=== PATIENT | female | born 1955 | race Caucasian/White ===

== ENCOUNTER → 2016-07-26 | Outpatient (CLI) | payer OTHER ==
[~2016-07-26] MED LIST: ASPI81TA21 PO; DEXL60CA4 PO; DTRSR10 PO; FLVHFA110 INH; LISI2.5T5 PO; LRT5 PO; METO-551 PO; MIRA1TAB3 PO; PANT40TA PO; TIOTCAP INH
--- NOTE | 2016-07-26 17:35 | MYOCARDIAL PERFUSION SCAN ---
STRESS CARDIOLITE EXERCISE TREADMILL TEST: Patient exercised for 8 minutes 35 seconds on a Sav protocol achieving a peak heart rate of 146 bpm (91% maximum predicted, 10 MET workload). Appropriate blood pressure response to exercise (resting BP 140/94 mm of mm Hg, peak BP 194/90 mm Hg) No symptoms reported. Baseline ECG showed sinus rhythm with low-voltage QRS, left axis deviation, and isoelectric ST segments. During stress, no ST deviation or significant ectopy noted. At the conclusion of the study, patient was asymptomatic and hemodynamically stable. IMAGING TECHNIQUE: For the stress portion of the study, 32.3 mCi of technetium- 99 m Cardiolite IV was injected at 10:00 a.m. on 07/26/2016. Fifteen minutes following the injection, imaging of the heart was performed in multiple projections. For the rest portion of the study, 10.6 mCi of technetium-99 m Cardiolite was injected IV at 8:10 a.m. One hour following the injection, imaging of the heart was performed in the same projections. FINDINGS: The short axis, vertical long axis, and horizontal long axis images were reviewed in detail. No perfusion defects noted at stress or rest. Left ventricular systolic function and wall motion were normal with ejection fraction of 67%. IMPRESSION: 1. No scintigraphic evidence of myocardial ischemia or infarct. 2. Normal left ventricular wall motion and systolic function (ejection fraction = 67%). 3. Negative ECG portion of exercise treadmill test. 4. No exercise-induced symptoms. MTDD
== END | disposition home or self-care (01) ==
LOC: C.NUCL 06:48
PROVIDERS: ATTEND Internal Medicine Cardiovascular Disease
DX: R07.89 Other chest pain (principal)

== ENCOUNTER → 2016-10-25 | Day surgery (SDC) | payer OTHER ==
[2016-10-21 11:31] VITALS: Ht 167.6 cm; Wt 99.5 kg
[~2016-10-25] VITALS: Ht 167.6 cm; Wt 99.5 kg
[~2016-10-25] MED LIST changes: -ASPI81TA21 PO; -DTRSR10 PO; -FLVHFA110 INH; +LIDOCAINE HCL 2% 2 ML VIAL (20MG/ML) ONE; -LISI2.5T5 PO; -LRT5 PO; -METO-551 PO; +MIDAZOLAM HCL 1 MG/ML 2ML VIAL ONE; -MIRA1TAB3 PO; +ONDANSETRON INJ 2 MG/ML 2 ML VIAL ONE; +PROPOFOL IV EMULSION 10 MG/ML 20 ML VIAL IV ONE; +SODIUM CHLORIDE 0.9% 500ML 500 ML IV ONE; -TIOTCAP INH
[2016-10-25 09:47] VITALS: TEMP 36.7
--- NOTE | 2016-10-25 10:15 | Endo History and Physical ---
History & Physical Date of Service: Oct 25, 2016. Chief Complaint: esophageal dysphagia,abdominal bloating,gastroparesis Referring Physician: Dr. Jacob Grier History of Present Illness 60 yo CF who presents for EGD secondary to dysphagia, abdominal bloating and gastroparesis. Past Surgical History Hx Cardiac Surgery: Yes (HEART CATH, NO STENTS) Hx Internal Defibrillator: No Hx Pacemaker: No Hx Abdominal Surgery: Yes (CAROLANN BSO) Hx of Implantable Prosthesis: No Hx Post-Op Nausea and Vomiting: Yes (SCOPALAMINE PATCH WORKS WELL) Hx Cancer Surgery: Yes (LT BREAST MASTECTOMY WITH IMPLANT-BASED RECONSTRUCTION) Hx Thoracic Surgery: No Hx Orthopedic: No Hx Urinary Tract Surgery: No Family History None Social History Smoking Status: Never Smoker Hx Substance Use: No Hx Alcohol Use: No Allergies Coded Allergies: Ciprofloxacin (Verified Allergy, Unknown, PT UNSURE REACTION, 10/25/16) tongue swelling Hydromorphone (Verified Allergy, Unknown, NAUSEA/VOMITING, 10/21/16) Oxycodone (Verified Allergy, Unknown, NAUSEA AND VOMITING, 10/21/16) Tramadol (Verified Allergy, Unknown, NAUSEA/VOMITING, 10/21/16) Current Medications Reported Home Medications Medications Dose Route/Sig Max Daily Dose Days Date Category Dexilant (Dexlansoprazole) 60 Mg Cap 60 Mg PO DAILY 10/25/16 Reported Vital Signs Weight (Kilograms): 99.55 Height (Feet): 5 Height (Inches): 6 Date Time Temp Pulse Resp B/P Pulse Ox O2 Delivery O2 Flow Rate FiO2 10/25/16 09:47 36.7 77 16 134/71 98 Room Air Physical Exam General Appearance: WD/WN, no apparent distress Respiratory/Chest: Auscultation: breath sounds normal Cardiovascular: Heart Auscultation: RRR Abdomen: Bowel Sounds: normal Inspection & Palpation: soft, non-distended, no tenderness, guarding & rebound Assessment and Plan Assessment: 60 yo CF who presents for EGD secondary to dysphagia, abdominal bloating and gastroparesis. Plan: Proceed with EGD.
--- NOTE | 2016-10-25 10:37 | GI REPORT ---
Procedure Date: 10/25/2016 10:12 AM Procedure: Upper GI endoscopy Indications: Dysphagia, Abdominal bloating Medicines: Monitored Anesthesia Care Complications: No immediate complications. Estimated Blood Loss: Estimated blood loss: none. Procedure: Pre-Anesthesia Assessment: - Prior to the procedure, a History and Physical was performed, and patient medications and allergies were reviewed. The patient's tolerance of previous anesthesia was also reviewed. The risks and benefits of the procedure and the sedation options and risks were discussed with the patient. All questions were answered, and informed consent was obtained. Prior Anticoagulants: The patient has taken no previous anticoagulant or antiplatelet agents. ASA Grade Assessment: II - A patient with mild systemic disease. After reviewing the risks and benefits, the patient was deemed in satisfactory condition to undergo the procedure. After obtaining informed consent, the endoscope was passed under direct vision. Throughout the procedure, the patient's blood pressure, pulse, and oxygen saturations were monitored continuously. The scope was introduced through the mouth, and advanced to the second part of duodenum. The upper GI endoscopy was accomplished without difficulty. The patient tolerated the procedure well. Findings: No endoscopic abnormality was evident in the esophagus to explain the patient's complaint of dysphagia. A small hiatus hernia was present. Multiple sessile polyps with no stigmata of recent bleeding were found in the gastric fundus. Localized mild inflammation characterized by erythema was found in the gastric antrum. Biopsies were taken with a cold forceps for histology. The examined duodenum was normal. Impression: - No endoscopic esophageal abnormality to explain patient's dysphagia. - Small hiatus hernia. - Multiple gastric polyps. - Gastritis. Biopsied. - Normal examined duodenum. Recommendation: - Resume previous diet. - Continue present medications. - Await pathology results. - Return to GI office as previously scheduled. - Perform routine esophageal manometry at appointment to be scheduled. Matthew Vanegas DO 10/25/2016 10:37:05 AM This report has been signed electronically. Note Initiated On: 10/25/2016 10:12 AM I attest to the content of the Intraoperative Record and orders documented therein, exceptions below
--- NOTE | 2016-10-25 10:44 | Discharge Instructions ---
Endoscopy Patient Instructions Date / Procedure(s) Performed Oct 25, 2016. EGD Allergy Information Coded Allergies: Ciprofloxacin (Verified Allergy, Unknown, PT UNSURE REACTION, 10/25/16) tongue swelling Hydromorphone (Verified Allergy, Unknown, NAUSEA/VOMITING, 10/21/16) Oxycodone (Verified Allergy, Unknown, NAUSEA AND VOMITING, 10/21/16) Tramadol (Verified Allergy, Unknown, NAUSEA/VOMITING, 10/21/16) Discharge Date / Findings Oct 25, 2016. Gastritis s/p biopsies Gastric polyps Hiatal hernia Medication Instructions OK to resume all medications today as prescribed Reported Home Medications Medications Dose Route/Sig Max Daily Dose Days Date Category Dexilant (Dexlansoprazole) 60 Mg Cap 60 Mg PO DAILY 10/25/16 Reported Provider Instructions Activity Restrictions - No exercising or heavy lifting for 24 hours. - Do not drink alcohol the day of the procedure. - Do not drive a car or operate machinery until the day after the procedure. - Do not make any important decisions or sign important papers in 24 hours after the procedure. Following Day: - Return to full activity which may include returning to work/school. Diet Start your diet with liquids and light foods (jello, soup, juice, toast). Then eat your usual diet if not nauseated. Treatment For Common After Affects For mild abdominal pain, bloating, or excessive gas: - Rest - Eat lightly - Lie on right side Follow-Up Information Follow-up with Dr. Jacob Grier as scheduled Anesthesia Information What You Should Know You have had a procedure that required some medicine to reduce anxiety and discomfort. This treatment is called moderate sedation. After receiving the treatment, you may be sleepy, but you will be able to breathe on your own. The effects of the treatment may last for several hours. Follow these instructions along with Activity/Diet recommendations noted above: * Do NOT do anything where dizziness or clumsiness would be dangerous. * Rest quietly at home today, then you can be up and about tomorrow. * Have a responsible person stay with you the rest of today. * You may have had an I.V. today. If so, you may take the dressing off later today. Recommendations Call your doctor if: * Trouble breathing * Continuous vomiting for more than 24 hours * Temperature above 101 degrees * Severe abdominal pain or bloating * Pain not relieved by pain medicine ordered * There is increased drainage or redness from any incision * A large amount of rectal bleeding greater than 2-3 tablespoons. (If you had a polyp/s removed or have hemorrhoids, a small amount of blood - from the rectum is to be expected.) * You have any unanswered questions or concerns. IN THE EVENT OF A SERIOUS EMERGENCY, GO TO THE NEAREST EMERGENCY ROOM Your discharge instructions were prepared by provider Matthew Vanegas. Patient Instructions Signature Page Reba Duncan Patient (or Guardian) Signature/Date: I have read and understand the instructions given to me by my caregivers. Caregiver/RN/Doctor Signature/Date: The above-named patient and/or guardian has received patient instructions on this date. + Original Patient Signature Page (only) stays with chart. Please make copy for patient.
--- NOTE | 2016-10-25 10:49 | Anesthesiology Progress Note ---
Anesthesia Post Op Note Date & Time Oct 25, 2016 at 10:49 Vital Signs Pain Intensity: 0 Vital Signs Past 12 Hours Date Time Temp Pulse Resp B/P Pulse Ox O2 Delivery O2 Flow Rate FiO2 10/25/16 10:45 79 20 111/69 95 Room Air 10/25/16 10:33 77 18 119/59 95 Room Air 10/25/16 09:47 36.7 77 16 134/71 98 Room Air Notes Mental Status: alert / awake / arousable, participated in evaluation Pt Amnestic to Procedure: Yes Nausea / Vomiting: adequately controlled Pain: adequately controlled Airway Patency, RR, SpO2: stable & adequate BP & HR: stable & adequate Hydration State: stable & adequate Anesthetic Complications: no major complications apparent
[2016-10-25 11:00] VITALS: BP 106/70; PULSE 70; O2SAT 95
== END | disposition home or self-care (01) ==
LOC: C.GI 09:06
PROVIDERS: ATTEND Internal Medicine
DX: K31.9 Disease of stomach and duodenum, unspecified (principal); R13.10 Dysphagia, unspecified; K44.9 Diaphragmatic hernia without obstruction or gangrene; K31.7 Polyp of stomach and duodenum; K31.84 Gastroparesis

== ENCOUNTER → 2016-12-09 | Outpatient (CLI) | payer OTHER ==
[~2016-12-09] MED LIST changes: -LIDOCAINE HCL 2% 2 ML VIAL (20MG/ML) ONE; -MIDAZOLAM HCL 1 MG/ML 2ML VIAL ONE; -ONDANSETRON INJ 2 MG/ML 2 ML VIAL ONE; -PANT40TA PO; -PROPOFOL IV EMULSION 10 MG/ML 20 ML VIAL IV ONE; -SODIUM CHLORIDE 0.9% 500ML 500 ML IV ONE
--- NOTE | 2016-12-09 13:12 | MAMMOGRAPHY REPORT ---
UNILATERAL RIGHT DIGITAL DIAGNOSTIC MAMMOGRAM TOMOSYNTHESIS WITH CAD AND TARGETED BILATERAL ULTRASOU ND: 12/09/2016 CLINICAL HISTORY: The patient reports a history of a left mastectomy status post silicone implant re construction 7 years ago. She also had a reduction mammoplasty. She reports bilateral lateral obinna st pain for over one year which she believes is worsening. She also reports that her left reconstru cted breast feels hot at times although she denies any redness on the breast. TECHNIQUE: Breast tomosynthesis in addition to standard 2D mammography was performed. Current study was also evaluated with a Computer Aided Detection (CAD) system. Right CC and MLO 2-D and tomosynt hesis images were obtained. COMPARISON: Comparison is made to exams dated: 10/14/2015 mammogram, 12/19/2012 mammogram, 11/15/2011 mammogram, 11/16/2010 mammogram, 05/25/2010 mammogram, and 07/01/2009 mammogram. BREAST COMPOSITION: There are scattered areas of fibroglandular density in the right breast. FINDINGS: A square marker de oliveira the site of pain in the right 8 to 9:00 breast laterally. There ar e no suspicious masses, calcifications, or areas of architectural distortion noted in the right obinna st. There has been no significant interval change compared to prior exams. Scattered benign-appear ing calcifications are unchanged. Targeted ultrasound was performed of the area of pain pointed out by the patient, in the right breas t at approximately 8 to 9:00 laterally. Sonographically normal tissue is seen, without evidence of a mass or other suspicious sonographic abnormality. Ultrasound was performed of the area of pain in the left reconstructed breast pointed out by the patient, in the left far lateral breast. Sonograp hically normal tissue is seen, without evidence of a mass or other suspicious sonographic abnormalit y. The visualized portions of the left lateral breast implant showed no clear evidence of rupture, however, if there is clinical concern then MRI would be better at evaluating for implant rupture. IMPRESSION: ACR BI-RADS CATEGORY 2: BENIGN, TARGETED ULTRASOUND ACR BI-RADS CATEGORY 2: BENIGN No suspicious mammographic or sonographic abnormality at the site of right lateral breast pain. No suspicious sonographic abnormality at the site of pain in the lateral aspect of the left reconstruct ed breast. There is no mammographic or targeted sonographic evidence of malignancy. Recommend clin ical follow-up for bilateral complaints, and recommend routine screening mammograms of the right omega ast in one year. The patient has been verbally notified of the results. Approximately 10% of breast cancers are not detected with mammography. A negative mammographic repor t should not delay biopsy if a clinically suggestive mass is present. Winifred Newell M.D. ah/:12/09/2016 11:51:47 Merchandise Flow Team Leader: Griselda YIP(Winsome)([place]), [facility] letter sent: Normal 1/2 BI-RADS Code: ACR BI-RADS Category 2: Benign Ultrasound BI-RADS: ACR BI-RADS Category 2: Benign
== END | disposition home or self-care (01) ==
LOC: C.MAMM 09:58
PROVIDERS: ATTEND Internal Medicine
DX: N64.4 Mastodynia (principal); Z90.12 Acquired absence of left breast and nipple

== ENCOUNTER → 2016-12-09 | Outpatient (CLI) | payer OTHER ==
[2016-12-09 09:32] LABS: HEMATOCRIT 43.9 % (37-47); MEAN CELL VOLUME 89.6 fL (80-100); MEAN CORPUSCULAR HEMOGLOBIN 30.6 pg (25-34); MEAN CORPUSCULAR HGB CONC 34.2 g/dl (32-36); MEAN PLATELET VOLUME 10.5 fL (7.4-10.4); PLATELET COUNT 233 K/uL (130-400); WHITE BLOOD COUNT 5.65 K/uL (4.8-10.8)
[2016-12-09 10:03] LABS: ESTIMATED AVERAGE GLUCOSE 134 mg/dl; HA1C FLAG Normal (Normal)
[2016-12-09 10:04] LABS: ALT/SGPT 38 U/L (12-78); AST/SGOT 24 U/L (15-37); BLOOD UREA NITROGEN 16 mg/dl (7-18); BUN/CREATININE RATIO 21.3 (10-20); CALCIUM 9.1 mg/dl (8.5-10.1); CARBON DIOXIDE 27 mmol/L (21-32); CHLORIDE 110 mmol/L (98-107); CREATININE 0.73 mg/dl (0.60-1.20); GLUCOSE 108 mg/dl (70-99); POTASSIUM 3.8 mmol/L (3.5-5.1); SODIUM 144 mmol/L (136-145)
[2016-12-09 10:09] LABS: ALB/GLOB RATIO 1.1 (0.9-2); ALKALINE PHOSPHATASE 65 U/L (45-117); CHOLESTEROL 208 mg/dl (0-200); CHOLESTEROL/HDL RATIO 2.2; HDL CHOLESTEROL 93 mg/dl; LDL CHOLESTEROL CALCULATED 102 mg/dl; TRIGLYCERIDES 66 mg/dl (0-150); VERY LOW DENSITY LIPOPROT CALC 13 mg/dl
== END | disposition home or self-care (01) ==
LOC: C.LAB1850 08:43
PROVIDERS: ATTEND Internal Medicine
DX: Z00.00 Encounter for general adult medical examination without abnormal findings (principal); E11.9 Type 2 diabetes mellitus without complications; N64.4 Mastodynia; Z90.12 Acquired absence of left breast and nipple

== ENCOUNTER → 2017-04-04 | Outpatient (CLI) | payer OTHER ==
[2017-04-04 18:08] LABS: URINE APPEARANCE CLEAR (CLEAR); URINE BILIRUBIN NEG (NEG); URINE COLOR YELLOW; URINE NITRITE NEG (NEG); URINE SPECIFIC GRAVITY 1.015 (1.000-1.030); UROBILINOGEN NEG (NEG)
[2017-04-04 18:11] LABS: MANUAL MICROSCOPIC REQUIRED? NO; REVIEW REQ? NO
[2017-04-04 18:44] LABS: RATIO 127.5 mcg/mg (0-30.0)
[2017-04-04 19:54] LABS: LYME DISEASE AB IGG NEG (NEG); LYME DISEASE AB IGM NEG (NEG)
== END | disposition home or self-care (01) ==
LOC: C.LABMFLN 14:27
PROVIDERS: ATTEND Internal Medicine
DX: T14.8 Other injury of unspecified body region (principal); Z11.59 Encounter for screening for other viral diseases; E11.9 Type 2 diabetes mellitus without complications; W57.XXXA Bitten or stung by nonvenomous insect and other nonvenomous arthropods, initial encounter

== ENCOUNTER 2017-07-12 14:07 | Emergency (ER) | payer OTHER ==
[~2017-07-12] VITALS: Ht 167.6 cm; Wt 100.2 kg
[2017-07-12 14:23] VITALS: TEMP 36.7; Ht 167.6 cm; Wt 100.2 kg
[2017-07-12] MEDS ORDERED: MIRA1TAB3 PO (14:42)
[2017-07-12] MEDS ORDERED: LISI2.5T5 PO (14:42)
[2017-07-12 15:06] VITALS: O2SAT 96
--- NOTE | 2017-07-12 15:15 | DIAGNOSTIC IMAGING REPORT ---
CHEST ONE VIEW PORTABLE HISTORY: Atypical CHEST PAIN COMPARISON: None. FINDINGS: No pneumothorax. No pleural effusions. The heart is top normal in size. Cervical spinal fusion hardware. Linear densities the left lung base likely represent scarring or atelectasis. The lungs are otherwise clear. No evidence for pulmonary edema. Surgical clips seen within the left axilla. IMPRESSION: No acute process. Electronically signed by: Erik Martin M.D. 07/12/2017 3:14 PM Dictated Date/Time: 07/12/2017 3:13 PM
--- NOTE | 2017-07-12 15:40 | EMERGENCY ROOM VISIT NOTE ---
History Report prepared by Kim: Master Walter Under the Supervision of: Dr. Leonel Emery D.O. First contact with patient: 14:29 Chief Complaint: REFERRED BY DOCTOR Stated Complaint: LEFT LEG IS NUMB, DR REFERRED BLOOD CLOT? History of Present Illness The patient is a 61 year old female who presents to the Emergency Room with complaints of constant chest pain beginning 3 weeks ago. The patient states that she has been having chest pain and worsening numbness in her left leg over the last 3 weeks. She reports that she has been getting sharp pain under her left breast implant and was evaluated at [facility] and told to come to the ED for evaluation of a DVT. She complains of sharp left leg pain, numbness, and weakness in her leg. The patient denies any headache and diarrhea. She reports a history of breast cancer, hypertension, and acid reflux. The patient has a surgical history of hysterectomy, cone removal, and breast implants (2013). The patient denies a tobacco and alcohol use. The patient reports a family history of blood clots. Source of History: patient Onset: 3 wqeeks ago Position: chest Timing: constant Associated Symptoms: + weakness (left leg), + numbness (left leg), No headache, No diarrhea Note: The patient complains of leg numbness. Review of Systems See HPI for pertinent positives & negatives. A total of 10 systems reviewed and were otherwise negative. Past Medical & Surgical Medical Problems: (1) Acid reflux (2) HTN (hypertension) Family History Blood clots Social History Smoking Status: Never Smoker Smokeless Tobacco Use: No Alcohol Use: none Marital Status: other () Occupation Status: disabled Current/Historical Medications Scheduled Dexlansoprazole (Dexilant), 60 MG PO DAILY Lisinopril (Lisinopril), 2.5 MG PO DAILY Mirabegron (Myrbetriq Er), 50 MG PO DAILY Allergies Coded Allergies: Ciprofloxacin (Verified Allergy, Unknown, PT UNSURE REACTION, 10/25/16) tongue swelling Hydromorphone (Verified Allergy, Unknown, NAUSEA/VOMITING, 10/21/16) Oxycodone (Verified Allergy, Unknown, NAUSEA AND VOMITING, 10/21/16) Tramadol (Verified Allergy, Unknown, NAUSEA/VOMITING, 10/21/16) Physical Exam Vital Signs Date Time Temp Pulse Resp B/P (MAP) Pulse Ox O2 Delivery O2 Flow Rate FiO2 07/12/17 17:37 82 18 122/76 98 Room Air 07/12/17 16:49 88 07/12/17 16:46 89 16 138/80 96 Room Air 07/12/17 16:05 88 20 154/82 98 Room Air 07/12/17 15:06 96 Room Air 07/12/17 14:23 36.7 96 18 152/90 94 Room Air Physical Exam GENERAL: Patient is awake, alert, and in no acute distress. Patient is resting comfortably and showing no signs of anxiety EYES: The conjunctivae are clear. The pupils are round and reactive. EARS, NOSE, MOUTH AND THROAT: The nose is without any evidence of any deformity. Mucous membranes are moist tongue is midline NECK: The neck is nontender and supple. RESPIRATORY: Normal respiratory effort is noted there is no evidence of wheezing rhonchi or rales CARDIOVASCULAR: Regular rate and rhythm noted there no murmurs rubs or gallops normal S1 normal S2 GASTROINTESTINAL: The abdomen is soft. Bowel sounds are present in all quadrants. Abdomen is nontender BACK: No midline tenderness or or step-off noted range of motion in flexion extension as well as rotation no signs of muscle spasm noted MUSCULOSKELETAL/EXTREMITIES: There is no evidence of gross deformity full range of motion is noted in the hips and shoulders. Pedal edema, left greater than right. SKIN: There is no obvious evidence of any rash. There are no petechiae, pallor or cyanosis noted. Mild erythema, no signs of cellulitis. NEUROLOGIC: Patient is awake alert and oriented x3 strength is symmetric patellar reflexes are 2+ bilaterally Medical Decision & Procedures ER Provider Diagnostic Interpretation: Radiology results as stated below per my review and radiologist interpretation: L VENOUS DOPP LOWER EXT UNILAT FINDINGS: There is normal flow, phasicity, augmentation and compressibility of the deep venous structures. Cystic structure of the left popliteal fossa is noted, 1.8 x 3.3 x 2.2 cm which is mildly complex without internal vascularity. IMPRESSION: 1. No sonographic evidence of deep venous thrombosis. 2. 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 The above report was generated using voice recognition software. It may contain grammatical, syntax or spelling errors. Electronically signed by: Forest Mancilla M.D. 07/12/2017 4:41 PM Dictated Date/Time: 07/12/2017 4:40 PM CHEST ONE VIEW PORTABLE FINDINGS: No pneumothorax. No pleural effusions. The heart is top normal in size. Cervical spinal fusion hardware. Linear densities the left lung base likely represent scarring or atelectasis. The lungs are otherwise clear. No evidence for pulmonary edema. Surgical clips seen within the left axilla. IMPRESSION: No acute process. Electronically signed by: Erik Martin M.D. 07/12/2017 3:14 PM Dictated Date/Time: 07/12/2017 3:13 PM Laboratory Results 07/12/17 16:06 Red Blood Count 4.66, Mean Corpuscular Volume 89.7, Mean Corpuscular Hemoglobin 30.9, Mean Corpuscular Hemoglobin Concent 34.4, Mean Platelet Volume 9.8, Neutrophils (%) (Auto) 56.5, Lymphocytes (%) (Auto) 37.3, Monocytes (%) (Auto) 5.0, Eosinophils (%) (Auto) 0.9, Basophils (%) (Auto) 0.2, Neutrophils # (Auto) 4.64, Lymphocytes # (Auto) 3.06, Monocytes # (Auto) 0.41, Eosinophils # (Auto) 0.07, Basophils # (Auto) 0.02 07/12/17 16:06 Test 07/12/17 16:05 07/12/17 16:06 Bedside D-Dimer 240 ng/mlFEU (0-450) White Blood Count 8.21 K/uL (4.8-10.8) Red Blood Count 4.66 M/uL (4.2-5.4) Hemoglobin 14.4 g/dL (12.0-16.0) Hematocrit 41.8 % (37-47) Mean Corpuscular Volume 89.7 fL (80-100) Mean Corpuscular Hemoglobin 30.9 pg (25-34) Mean Corpuscular Hemoglobin Concent 34.4 g/dl (32-36) Platelet Count 251 K/uL (130-400) Mean Platelet Volume 9.8 fL (7.4-10.4) Neutrophils (%) (Auto) 56.5 % Lymphocytes (%) (Auto) 37.3 % Monocytes (%) (Auto) 5.0 % Eosinophils (%) (Auto) 0.9 % Basophils (%) (Auto) 0.2 % Neutrophils # (Auto) 4.64 K/uL (1.4-6.5) Lymphocytes # (Auto) 3.06 K/uL (1.2-3.4) Monocytes # (Auto) 0.41 K/uL (0.11-0.59) Eosinophils # (Auto) 0.07 K/uL (0-0.5) Basophils # (Auto) 0.02 K/uL (0-0.2) RDW Standard Deviation 42.1 fL (36.4-46.3) RDW Coefficient of Variation 13.0 % (11.5-14.5) Immature Granulocyte % (Auto) 0.1 % Immature Granulocyte # (Auto) 0.01 K/uL (0.00-0.02) Prothrombin Time 9.9 SECONDS (9.0-12.0) Prothromb Time International Ratio 0.9 (0.9-1.1) Activated Partial Thromboplast Time 23.6 SECONDS (21.0-31.0) Partial Thromboplastin Ratio 0.9 Anion Gap 5.0 mmol/L (3-11) Est Creatinine Clear Calc Drug Dose 89.3 ml/min Estimated GFR () 93.6 Estimated GFR (Non- 80.8 BUN/Creatinine Ratio 23.6 (10-20) Calcium Level 8.7 mg/dl (8.5-10.1) Total Bilirubin 0.7 mg/dl (0.2-1) Direct Bilirubin 0.2 mg/dl (0-0.2) Aspartate Amino Transf (AST/SGOT) 15 U/L (15-37) Alanine Aminotransferase (ALT/SGPT) 31 U/L (12-78) Alkaline Phosphatase 64 U/L (45-117) Total Creatine Kinase 76 U/L (26-192) Creatine Kinase MB 0.9 ng/ml (0.5-3.6) Creatine Kinase MB Ratio 1.2 (0-3.0) Troponin I < 0.015 ng/ml (0-0.045) Total Protein 7.3 gm/dl (6.4-8.2) Albumin 3.6 gm/dl (3.4-5.0) Lipase 123 U/L (73-393) Laboratory results per my review. ECG Indication: chest pain Rate (beats per minute): 89 Rhythm: normal sinus Findings: Q waves (Inferior), no ectopy, other (no acute ST segment abnormalities) Comparison ECG Date: no prior available ED Course 1429: The patient was evaluated in room B5. A complete history and physical examination were performed. 1643: I reevaluated and updated the patient. 1720: Upon reevaluation, the patient is doing well. I discussed the results and treatment plan with her. She verbalized agreement of the treatment plan. She was discharged home. Medical Decision Differential diagnosis: Etiologies such as DVT, musculoskeletal, infection, joint effusion, trauma, lymphedema, idiopathic, CHF, as well as others were entertained.. The patient is a 61-year-old female who presented to the emergency department for an evaluation of leg swelling and chest discomfort. The patient called her primary care physician and was instructed to go to the emergency department for possible DVT or pulmonary embolism. I discussed the patient's laboratory and radiographic studies with her. Despite having ongoing symptoms her EKG did not show any acute ischemic changes and her cardiac bile markers were negative. The patient was encouraged to rest and avoid any strenuous activity. The patient was encouraged to continue all medications as prescribed. The patient was encouraged to follow-up with her family doctor soon as possible return to the emergency apartment immediately if symptoms change worsen or the need arises. Medication Reconcilliation Current Medication List: was personally reviewed by me Blood Pressure Screening Patient's blood pressure: Elevated blood pressure Blood pressure disposition: Elevated BP felt to be situational Impression Primary Impression: Chest pain Additional Impressions: Swelling of left lower extremity Bakers cyst Scribe Attestation The scribe's documentation has been prepared under my direction and personally reviewed by me in its entirety. I confirm that the note above accurately reflects all work, treatment, procedures, and medical decision making performed by me. Departure Information Dispostion Home / Self-Care Referrals Silvio Johnson M.D. (PCP) Forms HOME CARE DOCUMENTATION FORM, IMPORTANT VISIT INFORMATION, WORK / SCHOOL INSTRUCTIONS Patient Instructions Cyst Hernandez Popliteal, ED Chest Pain Atypical Unkn Cause, My [facility] Additional Instructions Call your family to schedule a follow-up appointment. Rest and avoid any strenuous activity. Continue all medications as prescribed. Return to the emergency department immediately if symptoms change worsen or the need arises. Problem Qualifiers Primary Impression: Chest pain Chest pain type: unspecified Qualified Codes: R07.9 - Chest pain, unspecified Additional Impressions: Bakers cyst Laterality: left Qualified Codes: M71.22 - Synovial cyst of popliteal space [Hernandez], left knee
[2017-07-12 16:16] LABS: BASO % 0.2 %; BASO ABS # 0.02 K/uL (0-0.2); COMPLETE YES; EOS % 0.9 %; HEMATOCRIT 41.8 % (37-47); IG% 0.1 %; LYMPH % 37.3 %; LYMPH ABS # 3.06 K/uL (1.2-3.4); MEAN CELL VOLUME 89.7 fL (80-100); MEAN CORPUSCULAR HEMOGLOBIN 30.9 pg (25-34); MEAN CORPUSCULAR HGB CONC 34.4 g/dl (32-36); MEAN PLATELET VOLUME 9.8 fL (7.4-10.4); NEUT % 56.5 %; PLATELET COUNT 251 K/uL (130-400); RED BLOOD COUNT 4.66 M/uL (4.2-5.4); WHITE BLOOD COUNT 8.21 K/uL (4.8-10.8)
[2017-07-12 16:28] LABS: INR 0.9 (0.9-1.1); PARTIAL THROMBOPLASTIN RATIO 0.9; PROTHROMBIN TIME (PATIENT) 9.9 SECONDS (9.0-12.0)
[2017-07-12 16:35] LABS: ALT/SGPT 31 U/L (12-78); AST/SGOT 15 U/L (15-37); BLOOD UREA NITROGEN 19 mg/dl (7-18); BUN/CREATININE RATIO 23.6 (10-20); CALCIUM 8.7 mg/dl (8.5-10.1); CARBON DIOXIDE 26 mmol/L (21-32); CHLORIDE 110 mmol/L (98-107); CREATININE 0.79 mg/dl (0.60-1.20); GLUCOSE 130 mg/dl (70-99); POTASSIUM 3.3 mmol/L (3.5-5.1); SODIUM 141 mmol/L (136-145)
[2017-07-12 16:41] LABS: ALKALINE PHOSPHATASE 64 U/L (45-117); CKMB/CK RATIO 1.2 (0-3.0)
--- NOTE | 2017-07-12 16:43 | DIAGNOSTIC IMAGING REPORT ---
L VENOUS DOPP LOWER EXT UNILAT HISTORY: 61 years-old Female pain, sent by PCP for possible DVT acute left lower extremity pain and swelling COMPARISON: None available TECHNIQUE: Multiple real-time sonographic images of the left lower extremity deep venous structures were obtained assessing grayscale appearance, color and spectral flow FINDINGS: There is normal flow, phasicity, augmentation and compressibility of the deep venous structures. Cystic structure of the left popliteal fossa is noted, 1.8 x 3.3 x 2.2 cm which is mildly complex without internal vascularity. IMPRESSION: 1. No sonographic evidence of deep venous thrombosis. 2. 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 The above report was generated using voice recognition software. It may contain grammatical, syntax or spelling errors. Electronically signed by: Forest Mancilla M.D. 07/12/2017 4:41 PM Dictated Date/Time: 07/12/2017 4:40 PM
[2017-07-12 17:37] VITALS: BP 122/76; PULSE 82; O2SAT 98
== END 2017-07-12 17:44 | disposition home or self-care (01) ==
LOC: C.EDB 14:09
DX: R07.9 Chest pain, unspecified (principal); M71.22 Synovial cyst of popliteal space [Baker], left knee; M79.89 Other specified soft tissue disorders; Z85.3 Personal history of malignant neoplasm of breast; I10 Essential (primary) hypertension; K21.9 Gastro-esophageal reflux disease without esophagitis; Z98.82 Breast implant status; Z82.49 Family history of ischemic heart disease and other diseases of the circulatory system; Z79.899 Other long term (current) drug therapy

== ENCOUNTER → 2017-08-18 | Outpatient (CLI) | payer OTHER ==
[~2017-08-18] MED LIST changes: +LISI2.5T5 PO; +MIRA1TAB3 PO
[2017-08-18 12:39] LABS: BASO % 0.3 %; BASO ABS # 0.02 K/uL (0-0.2); EOS % 0.9 %; EOS ABS # 0.07 K/uL (0-0.5); HEMATOCRIT 43.2 % (37-47); HEMOGLOBIN 14.7 g/dL (12.0-16.0); IG# 0.03 K/uL (0.00-0.02); LYMPH % 40.4 %; MEAN CELL VOLUME 90.2 fL (80-100); MEAN CORPUSCULAR HEMOGLOBIN 30.7 pg (25-34); MONO % 6.1 %; MONO ABS # 0.48 K/uL (0.11-0.59); NEUT % 51.9 %; NEUT ABS # 4.12 K/uL (1.4-6.5); PLATELET COUNT 256 K/uL (130-400); RED CELL DISTRIBUTION WIDTH SD 42.8 fL (36.4-46.3); WHITE BLOOD COUNT 7.92 K/uL (4.8-10.8)
[2017-08-18 13:14] LABS: HEMOGLOBIN A1C 6.4 % (4.5-5.6)
[2017-08-18 13:25] LABS: BLOOD UREA NITROGEN 14 mg/dl (7-18); CALCIUM 9.3 mg/dl (8.5-10.1); CARBON DIOXIDE 24 mmol/L (21-32); CREATININE 0.63 mg/dl (0.60-1.20); GLUCOSE 107 mg/dl (70-99); POTASSIUM 3.9 mmol/L (3.5-5.1); SODIUM 139 mmol/L (136-145)
[2017-08-18 13:28] LABS: ALKALINE PHOSPHATASE 62 U/L (45-117); ALT/SGPT 34 U/L (12-78); AST/SGOT 18 U/L (15-37); CHOLESTEROL 208 mg/dl (0-200); LDL CHOLESTEROL CALCULATED 99 mg/dl; TOTAL PROTEIN 7.4 gm/dl (6.4-8.2)
== END | disposition home or self-care (01) ==
LOC: C.LABMFLN 09:59
PROVIDERS: ATTEND Family Medicine
DX: K22.70 Barrett's esophagus without dysplasia (principal); E11.9 Type 2 diabetes mellitus without complications; Z00.00 Encounter for general adult medical examination without abnormal findings; R30.0 Dysuria

== ENCOUNTER → 2017-08-24 | Outpatient (CLI) | payer OTHER ==
--- NOTE | 2017-08-24 07:59 | DIAGNOSTIC IMAGING REPORT ---
ULTRASOUND RIGHT UPPER EXTREMITY NONVASCULAR CLINICAL HISTORY: Palpable mass. COMPARISON STUDY: No priors. FINDINGS: Real-time, grayscale, and color flow sonography of the soft tissues of the right upper extremity is performed at the indicated site of interest. There is a well-circumscribed hypoechoic lesion within the subcutaneous fat at this site. This measures 2.4 x 1.0 x 1.7 cm and this largely blends into the surrounding fat. No internal vascularity seen on color imaging. IMPRESSION: There is a 2.4 cm lesion identified the site of interest which largely blends into the surrounding fat. Although pathologically indeterminant the appearance is typical for a lipoma. Clinical correlation will be required. Electronically signed by: lAex Avalos M.D. 08/24/2017 7:57 AM Dictated Date/Time: 08/24/2017 7:56 AM
--- NOTE | 2017-08-24 07:59 | DIAGNOSTIC IMAGING REPORT ---
ABDOMEN LIMITED (US) CLINICAL HISTORY: 61 years-old Female presenting with R10.11 Abdominal pain, RUQ (right upper quadrant)[id number], history of breast cancer. TECHNIQUE: Real-time grayscale and limited color Doppler ultrasound imaging of the abdomen limited to the right upper quadrant was performed. COMPARISON: None. FINDINGS: Pancreas: Visualized portions of the pancreatic head and body normal. Liver: Markedly hyperechogenic parenchyma with obscuration of the right hemidiaphragm, likely indicating marked hepatic steatosis. The liver measures 17 cm in maximal sagittal dimension. Hypoechogenicity along the gallbladder fossa likely fatty sparing. Main portal vein patent with normal directional flow. Biliary: No intrahepatic biliary ductal dilatation. Common bile duct not well visualized but measures approximately 5 mm in diameter. Gallbladder: No evidence of gallstones, gallbladder wall thickening, gallbladder distention, or pericholecystic fluid or inflammatory change. Ringdown and twinkling artifact at the gallbladder fundus terminating from the gallbladder wall may indicate adenomyomatosis. Right kidney: Normal in appearance. No hydronephrosis. Ascites: None. IMPRESSION: Hepatic steatosis. Correlate with liver function tests to exclude steatohepatitis as a cause for abdominal pain. Electronically signed by: Francisco Clayton M.D. 08/24/2017 7:58 AM Dictated Date/Time: 08/24/2017 7:56 AM
== END | disposition home or self-care (01) ==
LOC: C.ULTR 06:30
PROVIDERS: ATTEND Family Medicine
DX: R10.11 Right upper quadrant pain (principal); R22.31 Localized swelling, mass and lump, right upper limb

== ENCOUNTER → 2017-09-18 | Outpatient (CLI) | payer OTHER ==
[2017-09-18 19:12] LABS: ALBUMIN 4.3 gm/dl (3.4-5.0); TOTAL PROTEIN 8.1 gm/dl (6.4-8.2)
== END | disposition home or self-care (01) ==
LOC: C.LABMFLN 12:26
PROVIDERS: ATTEND Family Medicine
DX: R35.0 Frequency of micturition (principal); R74.8 Abnormal levels of other serum enzymes

== ENCOUNTER → 2017-11-24 | Outpatient (CLI) | payer OTHER ==
[~2017-11-24] MED LIST changes: +LISI-1116 PO; -LISI2.5T5 PO
--- NOTE | 2017-11-24 08:38 | DIAGNOSTIC IMAGING REPORT ---
ABDOMEN COMPLETE (US) HISTORY: Pain. Nausea. R10.11 Abdominal pain, RUQ (right upper quadrant)D22.9 NevusULTR. COMPARISON: None. FINDINGS: Pancreas: The pancreas demonstrates a normal echotexture. Liver: Diffuse fatty infiltration Gallbladder: No gallbladder wall thickening. No gallstones. CBD: 4 mm Kidneys: No hydronephrosis. Spleen: Normal in size. Aorta: Normal in caliber. IVC: Patent. IMPRESSION: Fatty infiltration of liver. Otherwise negative abdominal ultrasound. The above report was generated using voice recognition software. It may contain grammatical, syntax or spelling errors. Electronically signed by: Jono Albright M.D. 11/24/2017 8:37 AM Dictated Date/Time: 11/24/2017 8:36 AM
== END | disposition home or self-care (01) ==
LOC: C.ULTR 07:49
PROVIDERS: ATTEND Family Medicine
DX: D22.9 Melanocytic nevi, unspecified (principal); R10.11 Right upper quadrant pain

== ENCOUNTER → 2018-02-13 | Outpatient (CLI) | payer OTHER ==
[~2018-02-13] MED LIST changes: +SULF800T23 PO
== END | disposition home or self-care (01) ==
LOC: C.LABSPEC 16:57
PROVIDERS: ATTEND Urology
DX: R30.0 Dysuria (principal); R35.1 Nocturia; R35.0 Frequency of micturition; R32 Unspecified urinary incontinence